=== PATIENT | male | born 1940 ===

== ENCOUNTER → 2025-04-13 09:44 | Outpatient (REF) | payer MEDICARE, OTHER, SELFPAY ==
[2025-04-13 09:31] LABS: Glucose 116 mg/dl (70-99)
== END ==
LOC: PET 09:44
PROVIDERS: ATTENDING PHYSICIAN Internal Medicine Critical Care Medicine
DX: R91.8 Other nonspecific abnormal finding of lung field (principal); Z01.818 Encounter for other preprocedural examination
CPT/HCPCS: 36415; 82947